=== PATIENT | male | born 1950 | race Caucasian/White ===

== ENCOUNTER 2024-10-08 12:53 | Outpatient (AMB) | payer MEDICARE, OTHER, SELFPAY ==
[2024-10-08 12:55] VITALS: BP 122/70; PULSE 57; O2SAT 99
--- NOTE | 2024-10-08 12:55 | MHC.OFFVIS ---
Vital Signs 10/08/24 12:55 Weight 289 lb 10.998 oz BP 122/70 Blood Pressure Location Lt brachial Position Sitting Pulse 57 Pulse Source Pulse Oximeter Pulse Oximetry (%) 99 Oxygen Delivery Method Room Air Intake Visit Reasons: RA/MR Recieved Intake Note: Patient presents today for follow up on RA today. Patient is requesting Leflunomide in 90 days' supply. He would also like to talk about the Methotrexate. Accompanied by: Spouse Allergies No Known Allergies Allergy (Verified 10/08/24 13:01) HPI HPI RA/MR Recieved: Details: Discontinued MTX 6 months ago. Feels well. No joint swelling or pain. Skin lesions on arms are healing. He was treated for fungus by Dermatology with antifungals. He is currently off of treatment and is just using a moisturizer. No infections. PFS Medical History (Updated 10/08/24 @ 13:36 by Wilbert Masters MD) Blindness of both eyes FH: cholecystectomy Surgical History (Updated 10/08/24 @ 13:11 by Suzanne Carroll CMA) Hx of cataract surgery History of right hip replacement Family History (Updated 10/08/24 @ 13:08 by Suzanne Carroll CMA) Father FH: pancreatic cancer Social History (Updated 10/08/24 @ 13:07 by Suzanne Carroll CMA) Alcohol intake: current Alcohol intake frequency: a few times a week Patient Tobacco Use Status: Never used Tobacco Review of Systems Const All systems reviewed & are unremarkable except as noted in HPI and below Physical Exam Vital Signs: Last Vital Signs Pulse 57 10/08/24 12:55 BP 122/70 10/08/24 12:55 Pulse Ox 99 10/08/24 12:55 Oxygen Delivery Method Room Air 10/08/24 12:55 Const Other: General: Comfortable CVS: RRR Respiratory: clear to auscultation bilaterally. Good respiratory effort Skin: Flat circular erythematous lesions present on left arm MSK: No synovitis present. No tenderness of any joints. Good range of motion of upper extremity and lower extremities. Assessment & Plan Assessment & Plan (1) Rheumatoid arthritis: Comment: history of rheumatoid arthritis seronegative on methotrexate since 10/07/2021 and leflunomide. He discontinued methotrexate 6 months ago due to feeling unwell. He has remained on monotherapy with leflunomide with maintenance of remission. Code(s): M06.9 - Rheumatoid arthritis, unspecified Category: Medical Qualifiers: Rheumatoid arthritis location: multiple sites Rheumatoid factor presence: without rheumatoid factor Qualified Code(s): M06.09 - Rheumatoid arthritis without rheumatoid factor, multiple sites Plan: Continue leflunomide 20 mg daily Labs for disease and drug monitoring order this visit. After lab results are back, we will send prescription of leflunomide 20 mg daily 90 day supply. Return to clinic in 3 months Immunizations: He is up-to-date with flu shot and COVID-19 booster. I recommend that he get Prevnar 13 and Pneumovax. (2) Other termite renewal inspector (current) drug therapy: Code(s): Z79.899 - Other chcf (current) drug therapy Category: Medical Plan: See above Orders: Orders Hepatitis B,C Profile Today M06.9 - Rheumatoid arthritis, unspecified, Z79.899 - Other chcf (current) drug therapy T Spot TB Today M06.9 - Rheumatoid arthritis, unspecified, Z79.899 - Other termite renewal inspector (current) drug therapy Complete Blood Count Auto Diff Today M06.9 - Rheumatoid arthritis, unspecified, Z79.899 - Other chcf (current) drug therapy Alanine Aminotransferase Today M06.9 - Rheumatoid arthritis, unspecified, Z79.899 - Other chcf (current) drug therapy Aspartate Amino Transferase Today M06.9 - Rheumatoid arthritis, unspecified, Z79.899 - Other chcf (current) drug therapy Creatinine Today M06.9 - Rheumatoid arthritis, unspecified, Z79.899 - Other termite renewal inspector (current) drug therapy Erythrocyte Sedimentation Rate Today M06.9 - Rheumatoid arthritis, unspecified, Z79.899 - Other termite renewal inspector (current) drug therapy C Reactive Protein Today M06.9 - Rheumatoid arthritis, unspecified, Z79.899 - Other termite renewal inspector (current) drug therapy Coding Level of Care Code Est Pt Level 4 (93077) Diagnoses Rheumatoid arthritis of multiple sites with negative rheumatoid factor M06.09 Rheumatoid arthritis location: multiple sites Rheumatoid factor presence: without rheumatoid factor Other termite renewal inspector (current) drug therapy Z79.899
== END 2024-10-08 13:35 | disposition home or self-care (01) ==
PROVIDERS: PCP Internal Medicine; Visit Provider Internal Medicine Rheumatology
DX: M06.09 Rheumatoid arthritis without rheumatoid factor, multiple sites (principal); Z79.899 Other long term (current) drug therapy
CPT/HCPCS: 99214

== ENCOUNTER → 2024-10-08 12:53 | Outpatient (BNVA) | payer MEDICARE, SELFPAY | PROVIDERS: PCP Internal Medicine; Visit Provider Internal Medicine Rheumatology | DX: M06.09 Rheumatoid arthritis without rheumatoid factor, multiple sites (principal); Z79.899 Other long term (current) drug therapy | CPT/HCPCS: 99212 ==

== ENCOUNTER 2024-10-12 12:56 | Outpatient (REF) | payer MEDICARE, OTHER, SELFPAY ==
[2024-10-12 13:15] LABS: MANUAL DIFF FLAG NO
[2024-10-12 14:10] LABS: Basophils Percent Auto 0.7 % (0-2); Eosinophils Absolute Auto 0.2 X10*3/uL (0.0-0.4); Eosinophils Percent Auto 3.3 % (0-4); Hematocrit 35.5 % (42.0-52.0); Hemoglobin 10.8 g/dl (14.0-18.0); Imm Gran Abs Auto 0.02 X10*3/uL (0.00-0.03); Imm Gran Pct Auto 0.4 % (0.0-0.4); Lymphocytes Absolute Auto 0.6 X10*3/uL (1.2-4.9); Lymphocytes Percent Auto 13.7 % (20-40); Mean Corpuscular HGB Conc 30.4 g/dl (31.0-36.0); Mean Corpuscular Hemoglobin 19.7 pg (27.0-33.0); Monocytes Absolute Auto 0.5 X10*3/uL (0.1-1.2); Monocytes Percent Auto 11.8 % (2-11); Neutrophils Absolute Auto 3.2 x10*3/uL (2.0-8.3); Neutrophils Percent Auto 70.1 % (45-73); Platelet Count 184 X10*3/uL (160-400); Red Blood Count 5.48 X10*6/uL (4.60-5.80); Red Cell Distribution Width 17.1 % (11.0-16.0); White Blood Count 4.5 X10*3/uL (4.8-10.8)
[2024-10-12 14:11] LABS: Mean Corpuscular Volume 64.8 fL (80.0-98.0)
[2024-10-12 14:48] LABS: Erythrocyte Sedimentation Rate 10 MM/HR (0-15)
[2024-10-12 15:01] LABS: Alanine Aminotransferase 20 U/L (0-40); Aspartate Amino Transferase 32 U/L (5-37); C Reactive Protein 0.12 mg/dL (< or = 0.50); Estimated Glomerular Filt Rate 56
[2024-10-13 08:14] LABS: HBc Num1 0.14 S/CO (0.00-0.79); Hepatitis B Core Antibody Nonreactive (Nonreactive); Hepatitis B Surface Antigen Negative (Negative); ~HepC Num1 0.13 S/CO (0.00-0.79); ~Hepatitis B Surface Antibody NONREACTIVE (Nonreactive); ~Hepatitis C Antibody Nonreactive (Nonreactive)
[2024-10-15 03:54] LABS: TS Negative Control Passed; TS Panel A 0; TS Panel B 0; TS Positive Control Passed; TSpotTB Negative (Negative)
== END 2024-10-12 12:57 | disposition home or self-care (01) ==
LOC: HO.LAB 12:56
PROVIDERS: PCP Internal Medicine; Visit Provider Internal Medicine Rheumatology
DX: M06.9 Rheumatoid arthritis, unspecified (principal); Z79.899 Other long term (current) drug therapy
CPT/HCPCS: 36415; 82565; 84450; 84460; 85025; 85652; 86140; 86481; 86704; 86706; 86803; 87340

== ENCOUNTER 2025-01-07 13:17 | Outpatient (REF) | payer MEDICARE, OTHER, SELFPAY ==
[2025-01-07 17:58] LABS: MANUAL DIFF FLAG NO
[2025-01-07 18:22] LABS: Alanine Aminotransferase 18 U/L (0-40); Aspartate Amino Transferase 27 U/L (5-37); C Reactive Protein < 0.10 mg/dL (< or = 0.50); Estimated Glomerular Filt Rate > 60
[2025-01-07 18:26] LABS: Basophils Percent Auto 0.4 % (0-2); Eosinophils Absolute Auto 0.1 X10*3/uL (0.0-0.4); Eosinophils Percent Auto 2.7 % (0-4); Hematocrit 38.2 % (42.0-52.0); Hemoglobin 11.5 g/dl (14.0-18.0); Imm Gran Abs Auto 0.02 X10*3/uL (0.00-0.03); Imm Gran Pct Auto 0.4 % (0.0-0.4); Lymphocytes Absolute Auto 0.7 X10*3/uL (1.2-4.9); Lymphocytes Percent Auto 14.5 % (20-40); Mean Corpuscular HGB Conc 30.1 g/dl (31.0-36.0); Mean Corpuscular Hemoglobin 19.5 pg (27.0-33.0); Monocytes Absolute Auto 0.5 X10*3/uL (0.1-1.2); Neutrophils Absolute Auto 3.1 x10*3/uL (2.0-8.3); Platelet Count 183 X10*3/uL (160-400); Red Blood Count 5.89 X10*6/uL (4.60-5.80); Red Cell Distribution Width 18.1 % (11.0-16.0); White Blood Count 4.5 X10*3/uL (4.8-10.8)
[2025-01-07 18:27] LABS: Mean Corpuscular Volume 64.9 fL (80.0-98.0)
[2025-01-07 19:03] LABS: Erythrocyte Sedimentation Rate 6 MM/HR (0-15)
== END 2025-01-07 13:18 | disposition home or self-care (01) ==
LOC: HO.HKASLDS 13:17
PROVIDERS: Visit Provider Internal Medicine Rheumatology
DX: M06.09 Rheumatoid arthritis without rheumatoid factor, multiple sites (principal); Z79.899 Other long term (current) drug therapy; Z79.60 Long term (current) use of unspecified immunomodulators and immunosuppressants
CPT/HCPCS: 36415; 82565; 84450; 84460; 85025; 85652; 86140; 99212

== ENCOUNTER 2025-01-07 13:17 | Outpatient (AMB) | payer MEDICARE, OTHER, SELFPAY ==
--- NOTE | 2025-01-07 13:19 | A.OFFVIS_ITS ---
Vital Signs 01/07/25 13:23 Height 5 ft 11 in Weight 281 lb BMI 39.2 Blood Pressure Location Lt brachial Position Sitting Pulse 65 Pulse Source Pulse Oximeter Pulse Oximetry (%) 97 Oxygen Delivery Method Room Air Intake Visit Reasons: Follow Up 3mo Intake Note: Patient presents today for follow up on RA today. Accompanied by: Spouse Allergies No Known Allergies Allergy (Verified 01/07/25 13:20) HPI HPI Follow Up 3mo: Details: He feels well. No joint stiffness. No joint pain or swelling. No recent infection. PFSH Medical History Blindness of both eyes FH: cholecystectomy Surgical History Hx of cataract surgery History of right hip replacement Family History Father FH: pancreatic cancer Social History Alcohol intake: current Alcohol intake frequency: a few times a week Patient Tobacco Use Status: Never used Tobacco Review of Systems Const All systems reviewed & are unremarkable except as noted in HPI and below Physical Exam Vital Signs: Last Vital Signs Pulse 65 01/07/25 13:23 Pulse Ox 97 01/07/25 13:23 Oxygen Delivery Method Room Air 01/07/25 13:23 BMI result Body Mass Index 39.2 Const Other: General: Comfortable CVS: RRR Respiratory: clear to auscultation bilaterally. Good respiratory effort Skin: Flat circular erythematous lesions present on left arm MSK: No synovitis present. No tenderness of any joints. Good range of motion of upper extremity and lower extremities. Assessment & Plan Assessment & Plan (1) Rheumatoid arthritis: Comment: He has remained in remission on monotherapy with leflunomide. History of rheumatoid arthritis seronegative on methotrexate since 10/07/2021- 2023 discontinued due to feeling unwell and leflunomide 09/2021-present. Code(s): M06.9 - Rheumatoid arthritis, unspecified Category: Medical Qualifiers: Rheumatoid arthritis location: multiple sites Rheumatoid factor presence: without rheumatoid factor Qualified Code(s): M06.09 - Rheumatoid arthritis without rheumatoid factor, multiple sites Plan: Continue leflunomide 20 mg daily Labs for disease and drug monitoring order this visit Return to clinic in 3 months (2) Other predatory animal exterminator (current) drug therapy: Code(s): Z79.899 - Other predatory animal exterminator (current) drug therapy Category: Medical Plan: See above Orders: Orders Creatinine Today Z79.60 - FPC (current) use of unspecified immunomodulators and immunosuppressants C Reactive Protein Today Z79.899 - Other predatory animal exterminator (current) drug therapy Complete Blood Count Auto Diff Today Z79.60 - FPC (current) use of unspecified immunomodulators and immunosuppressants Aspartate Amino Transferase Today Z79.60 - termite treater helper (current) use of unspecified immunomodulators and immunosuppressants Alanine Aminotransferase Today Z79.60 - termite treater helper (current) use of unspecified immunomodulators and immunosuppressants Erythrocyte Sedimentation Rate Today Z79.899 - Other longterm (current) drug therapy Medications: Refilled leflunomide Take 1 tablet daily 20 mg PO DAILY 90 tabs 0RF Coding Level of Care Code Est Pt Level 4 (80337) Complex EM visit Add On G2211 Diagnoses Rheumatoid arthritis of multiple sites with negative rheumatoid factor M06.09 Rheumatoid arthritis location: multiple sites Rheumatoid factor presence: without rheumatoid factor Other predatory animal exterminator (current) drug therapy Z79.899
[2025-01-07 13:23] VITALS: PULSE 65; O2SAT 97; BMI 39.2
== END 2025-01-07 13:49 | disposition home or self-care (01) ==
PROVIDERS: PCP Internal Medicine; Visit Provider Internal Medicine Rheumatology
DX: M06.09 Rheumatoid arthritis without rheumatoid factor, multiple sites (principal); Z79.899 Other long term (current) drug therapy
CPT/HCPCS: 99214; G2211

== ENCOUNTER 2025-04-07 13:26 | Outpatient (REF) | payer MEDICARE, OTHER, SELFPAY ==
[2025-04-07 18:51] LABS: Alanine Aminotransferase 14 U/L (0-40); Aspartate Amino Transferase 40 U/L (5-37); C Reactive Protein < 0.10 mg/dL (< or = 0.50); Estimated Glomerular Filt Rate > 60; Iron 102 mcg/dL (45-160); Percent Iron Saturation 38 % (15-50); Total Iron Binding Capacity 267 mcg/dL (228-428); Unsaturated Iron Binding 165 ug/dL
[2025-04-07 19:00] LABS: Ferritin 684 ng/mL (20-250)
[2025-04-08 17:14] LABS: Transferrin 243 mg/dL (188-341)
== END 2025-04-07 13:27 | disposition home or self-care (01) ==
LOC: HO.HKASLDS 13:26
PROVIDERS: PCP Internal Medicine; Visit Provider Internal Medicine Rheumatology
DX: M06.09 Rheumatoid arthritis without rheumatoid factor, multiple sites (principal); D50.9 Iron deficiency anemia, unspecified; Z79.60 Long term (current) use of unspecified immunomodulators and immunosuppressants; Z79.899 Other long term (current) drug therapy
CPT/HCPCS: 36415; 82565; 82728; 83540; 84450; 84460; 84466; 86140; 99212

== ENCOUNTER 2025-04-07 13:26 | Outpatient (AMB) | payer MEDICARE, OTHER, SELFPAY ==
--- NOTE | 2025-04-07 13:29 | MHC.OFFVIS ---
Vital Signs 04/07/25 13:35 Height 5 ft 11 in Weight 285 lb 7.978 oz BMI 39.8 BP 130/72 Blood Pressure Location Lt brachial Position Sitting Pulse 81 Pulse Source Pulse Oximeter Pulse Oximetry (%) 99 Oxygen Delivery Method Room Air Intake Visit Reasons: 3 Months Intake Note: Patient presents today for follow up on RA today. Patient requesting refill of Leflunomide today. Allergies No Known Allergies Allergy (Verified 04/07/25 13:36) PFSH Medical History Blindness of both eyes FH: cholecystectomy Surgical History Hx of cataract surgery History of right hip replacement Family History Father FH: pancreatic cancer Social History Alcohol intake: current Alcohol intake frequency: a few times a week Patient Tobacco Use Status: Never used Tobacco Physical Exam Vital Signs: Last Vital Signs Pulse 81 04/07/25 13:35 BP 130/72 04/07/25 13:35 Pulse Ox 99 04/07/25 13:35 Oxygen Delivery Method Room Air 04/07/25 13:35 BMI result Body Mass Index 39.8 Const Other: General: Comfortable CVS: RRR Respiratory: clear to auscultation bilaterally. Good respiratory effort Skin: Flat circular erythematous lesions present on left arm MSK: No synovitis present. No tenderness of any joints. Good range of motion of upper extremity and lower extremities. Assessment & Plan Assessment & Plan (1) Rheumatoid arthritis: Comment: He has remained in remission on monotherapy with leflunomide. He has had mild leukopenia since 07/2024. CT abdomen/pelvis 07/2023 reveals normal spleen ruling out Felty's syndrome as cause for leukopenia in a patient with rheumatoid arthritis. There is a possibility of bone marrow suppression from leflunomide contributing to leukopenia. He has thalassemia minor contributing to microcytic anemia. He has mild fatigue. Rheumatology History of rheumatoid arthritis seronegative on methotrexate since 10/07/2021-2024 discontinued due to feeling unwell. Leflunomide 09/2021-present. Code(s): M06.9 - Rheumatoid arthritis, unspecified Category: Medical Qualifiers: Rheumatoid arthritis location: multiple sites Rheumatoid factor presence: without rheumatoid factor Qualified Code(s): M06.09 - Rheumatoid arthritis without rheumatoid factor, multiple sites Plan: Continue leflunomide 20 mg daily Labs for disease and drug monitoring order this visit. Iron studies ordered Return to clinic in 3 months (2) Other care home (current) drug therapy: Code(s): Z79.899 - Other care home (current) drug therapy Category: Medical Plan: See above (3) Microcytic anemia: Comment: Due to thalassemia minor. Code(s): D50.9 - Iron deficiency anemia, unspecified Category: Medical Plan: I will rule out iron deficiency anemia contributing to mild fatigue with Iron studies Orders: Orders Complete Blood Count Auto Diff Today Z79.60 - intermediate (current) use of unspecified immunomodulators and immunosuppressants Creatinine Today Z79.60 - adjunct faculty for medical terminology (current) use of unspecified immunomodulators and immunosuppressants C Reactive Protein Today Z79.899 - Other intermediate frame tender (current) drug therapy IRON PROFILE Today D50.9 - Iron deficiency anemia, unspecified Transferrin Today D50.9 - Iron deficiency anemia, unspecified Alanine Aminotransferase Today Z79.60 - intermediate (current) use of unspecified immunomodulators and immunosuppressants Aspartate Amino Transferase Today Z79.60 - adjunct faculty for medical terminology (current) use of unspecified immunomodulators and immunosuppressants Erythrocyte Sedimentation Rate Today Z79.899 - Other intermediate frame tender (current) drug therapy Ferritin Today D50.9 - Iron deficiency anemia, unspecified Medications: Refilled leflunomide Take 1 tablet daily 20 mg PO DAILY 90 tabs 0RF Coding Level of Care Code Est Pt Level 4 (90966) Complex EM visit Add On G2211 Diagnoses Rheumatoid arthritis of multiple sites with negative rheumatoid factor M06.09 Rheumatoid arthritis location: multiple sites Rheumatoid factor presence: without rheumatoid factor Other intermediate frame tender (current) drug therapy Z79.899 Microcytic anemia D50.9
[2025-04-07 13:35] VITALS: BP 130/72; PULSE 81; O2SAT 99; BMI 39.8
== END 2025-04-07 14:03 | disposition home or self-care (01) ==
LOC: HO.RHES 13:27
PROVIDERS: PCP Internal Medicine; Visit Provider Internal Medicine Rheumatology
DX: M06.09 Rheumatoid arthritis without rheumatoid factor, multiple sites (principal); Z79.899 Other long term (current) drug therapy; D50.9 Iron deficiency anemia, unspecified
CPT/HCPCS: 99214; G2211

== ENCOUNTER 2025-04-20 13:22 | Outpatient (REF) | payer MEDICARE, OTHER, SELFPAY ==
[2025-04-20 18:52] LABS: Aspartate Amino Transferase 29 U/L (5-37)
[2025-04-20 18:55] LABS: Basophils Percent Auto 0.4 % (0-2); Eosinophils Absolute Auto 0.2 X10*3/uL (0.0-0.4); Eosinophils Percent Auto 2.9 % (0-4); Hematocrit 35.4 % (42.0-52.0); Hemoglobin 10.4 g/dl (14.0-18.0); Imm Gran Abs Auto 0.02 X10*3/uL (0.00-0.03); Imm Gran Pct Auto 0.4 % (0.0-0.4); Lymphocytes Absolute Auto 0.5 X10*3/uL (1.2-4.9); Lymphocytes Percent Auto 9.2 % (20-40); MANUAL DIFF FLAG SCAN; Mean Corpuscular HGB Conc 29.4 g/dl (31.0-36.0); Mean Corpuscular Hemoglobin 19.2 pg (27.0-33.0); Mean Corpuscular Volume 65.2 fL (80.0-98.0); Monocytes Absolute Auto 0.9 X10*3/uL (0.1-1.2); Monocytes Percent Auto 16.6 % (2-11); Neutrophils Absolute Auto 3.9 x10*3/uL (2.0-8.3); Neutrophils Percent Auto 70.5 % (45-73); Platelet Count 221 X10*3/uL (160-400); Red Blood Count 5.43 X10*6/uL (4.60-5.80); Red Cell Distribution Width 18.2 % (11.0-16.0); SCAN SMEAR FLAG 1; White Blood Count 5.6 X10*3/uL (4.8-10.8)
[2025-04-20 18:58] LABS: PLT ABN DIST 1
[2025-04-20 19:36] LABS: Erythrocyte Sedimentation Rate 13 MM/HR (0-15)
[2025-04-20 20:20] LABS: SLIDE REVIEW VERIFIED
== END 2025-04-20 13:23 | disposition home or self-care (01) ==
LOC: HO.HKASLDS 13:22
PROVIDERS: Visit Provider Internal Medicine Rheumatology
DX: R74.01 Elevation of levels of liver transaminase levels (principal); Z79.60 Long term (current) use of unspecified immunomodulators and immunosuppressants; Z79.899 Other long term (current) drug therapy
CPT/HCPCS: 36415; 84450; 85025; 85652

== ENCOUNTER 2025-07-20 14:07 | Outpatient (AMB) | payer MEDICARE, OTHER, SELFPAY ==
--- NOTE | 2025-07-20 14:09 | MHC.OFFVIS ---
Vital Signs 07/20/25 14:10 Height 5 ft 11 in BP 130/80 Blood Pressure Location Rt brachial Position Sitting Pulse 65 Pulse Source Pulse Oximeter Pulse Oximetry (%) 95 Oxygen Delivery Method Room Air Intake Visit Reasons: 3 months Intake Note: Patient presents today for follow up on RA today. Accompanied by: Spouse Allergies No Known Allergies Allergy (Verified 07/20/25 14:10) HPI HPI 3 months: Details: Denies any joint pain. Denies any recent infections. No morning stiffness. Occasionally right 2nd finger we will be delayed in flexion. No triggering. PFSH Medical History Blindness of both eyes FH: cholecystectomy Surgical History Hx of cataract surgery History of right hip replacement Family History Father FH: pancreatic cancer Social History Alcohol intake: current Alcohol intake frequency: a few times a week Patient Tobacco Use Status: Never used Tobacco Physical Exam Vital Signs: Last Vital Signs Pulse 65 07/20/25 14:10 BP 130/80 07/20/25 14:10 Pulse Ox 95 07/20/25 14:10 Oxygen Delivery Method Room Air 07/20/25 14:10 Const Other: General: Comfortable CVS: RRR Respiratory: clear to auscultation bilaterally. Good respiratory effort Skin: Flat circular erythematous lesions present on left arm MSK: No synovitis present. No tenderness of any joints. Good range of motion of upper extremity and lower extremities. No triggering observed. Assessment & Plan Assessment & Plan (1) Rheumatoid arthritis: Comment: He has remained in remission on monotherapy with leflunomide. He has had mild leukopenia since 07/2024, which resolved on recent testing 04/2025. CT abdomen/pelvis 07/2023 reveals normal spleen ruling out Felty's syndrome as cause for leukopenia in a patient with rheumatoid arthritis. Consider drug-induced leukopenia if it reoccurs. Rheumatology History of rheumatoid arthritis seronegative on methotrexate since 10/07/2021-2024 discontinued due to feeling unwell. Leflunomide 09/2021-present. He has thalassemia minor contributing to chronic microcytic anemia. Code(s): M06.9 - Rheumatoid arthritis, unspecified Category: Medical Qualifiers: Rheumatoid arthritis location: multiple sites Rheumatoid factor presence: without rheumatoid factor Qualified Code(s): M06.09 - Rheumatoid arthritis without rheumatoid factor, multiple sites Plan: Continue leflunomide 20 mg daily Labs for disease and drug monitoring order this visit Return to clinic in 3 months (2) Trigger finger, right index finger: Comment: Suspected based on history. Discussed conservative management. Code(s): M65.321 - Trigger finger, right index finger Category: Medical Plan: OT ordered with splinting. Requisition given to patient as he prefers do it at [facility] local to his home Return to clinic in 3 months (3) Other nursing home (current) drug therapy: Code(s): Z79.899 - Other long term care pharmacist (current) drug therapy Category: Medical Plan: See above (4) Microcytic anemia: Comment: Due to thalassemia minor. Code(s): D50.9 - Iron deficiency anemia, unspecified Category: Medical Plan: Monitor Orders: Orders Complete Blood Count Auto Diff Today Z79.899 - Other nursing home (current) drug therapy Aspartate Amino Transferase Today Z79.899 - Other long term care pharmacist (current) drug therapy C Reactive Protein Today Z79.899 - Other long term care pharmacist (current) drug therapy Alanine Aminotransferase Today Z79.899 - Other nursing home (current) drug therapy Creatinine Today Z79.899 - Other long term care pharmacist (current) drug therapy Erythrocyte Sedimentation Rate Today Z79.899 - Other nursing home (current) drug therapy OT Evaluation and Treatment Today M65.321 - Trigger finger, right index finger Medications: Refilled leflunomide Take 1 tablet daily 20 mg PO DAILY 90 tabs 0RF Coding Level of Care Code Est Pt Level 4 (91804) Complex EM visit Add On G2211 Diagnoses Rheumatoid arthritis of multiple sites with negative rheumatoid factor M06.09 Rheumatoid arthritis location: multiple sites Rheumatoid factor presence: without rheumatoid factor Trigger finger, right index finger M65.321 Other long term care pharmacist (current) drug therapy Z79.899 Microcytic anemia D50.9
[2025-07-20 14:10] VITALS: BP 130/80; PULSE 65; O2SAT 95
--- OUTSIDE RECORDS SUMMARY | 2025-07-20 15:20 | XMS_ITS | Encounter Summary ---
Author Organization [facility] Address [address] [place] [id number] Phone Care Team Providers Care Tool Crib Attendant Name Role Phone Rubio Grubbs MD Primary Care Provider [phone] Carlos Christian MD Unavailable [phone] Rubio Grubbs MD Unavailable Wilbert Masters MD Unavailable Carlos Caputo MD Unavailable Reason for Visit * Reason Onset Date Comments Palpitations 05/14/2023 Encounter Details Date Type Department Care Team (Late st Contact Info) Description 05/14/2023 Nurse Triage [address] [address] Rubio Grubbs MD [address] [facility] [facility] [place] [address] [email or web address] Palpitations Social History Tobacco Use Types Packs/Day Years Used Date Smoking Tobacco: Never Smokeless Tobacco: Never Alcohol Use Standard Drinks/Week Comments Yes 0 (1 standard drink = 0.6 oz pur e alcohol) weekends Education Answer Date Recorded Are you interested in more education? Not on gregg e 03/24/2023 Are you concerned about learning? Not on file 03/24/2023 No 03/24/2023 No 03/24/2023 Digital Access Answer Date Recorded No 04/14/2023 No 04/14/2023 Reliable internet access at home? Not on file 04/14/2023 Device with a working camera? Not on file Sex and Gender Information Value Date Recorded Sex Assigned at Not on file Legal Sex Male 6:27 PM EST Gender Identity Not on file Sexual Orientation Not on file documented as of this encounter Progress Notes * Felicia Asif LPN - 05/16/2023 11:38 AM EDT Cardiology: Patient has an order in for a holter monitor. PCP asked me to call up to see if at all possible to put one on him while he is here this morning? * Malinda Bailey RN - 05/14/2023 2:08 PM EDT Spoke to patient and his . He was seen in the office on 04/03 for an episode similar to this. Another episode occurred this past Saturday; fast heart rate, throat howard, almost 20 minutes long. He feels exhausted afterwards. No chest pain, he does not feel like his heart skips beats. When this occurred on Saturday he was laying down reading a book. No SOB reported. When he exercises he does notfeel any of these symptoms. Advised to go to ED if he develops chest pain or the fast heart rate does not stop. Nurse Triage Encounter Note Reason for Triage Dez Weaver contacted office for Palpitations Call Disposition See Within 2 Weeks In Office Patient/caregiver understands and will follow disposition: Yes Patient/caregiver understands and will follow care advice: Yes, Plans To Follow Advice Disposition Comments: Protocols used: Heart Rate And Heartbeat [id number] Initial Symptom Screening and Assessment IA Symptom Onset Sudden onset Symptom Pattern Intermittent (comes and goes) Breathing or Chest Symptoms (Resp/Cardiac) Cardiac symptoms Rapid heart rate; Other (comment) Other breathing or chest symptoms? throat burning Care Advice Given Care Advice Patient/Caregiver understands and will follow care advice?: Yes, plans to follow advice SEE IN OFFICE WITHIN 2 WEEKS: * You need to be examined. * Let me give you an appointment. CALL BACK IF: * Chest pain, lightheadedness, or difficulty breathing occurs * Heart beating more than 140 beats / minute * More than 3 extra or skipped beats / minute * You become worse Patient will call back with additional questions or if symptoms change or worsen Malinda Bailey RN Reason for Disposition and Assessment Reason for Disposition Palpitations are a chronic symptom (recurrent or ongoing AND present > 4 weeks) Protocols used: HEART RATE AND HEARTBEAT [id number] * Lana Guerrero - 05/14/2023 2:01 PM EDT Nyasia called and left a message requesting a call back regarding patient stating he is having a hard time with his palpitations. Please contact and advise. documented in this encounter Plan of Treatment Upcoming Encounters Date Type Department Care Team (Late st Contact Info) Description 11/23/2025 1:00 PM EST Office Visit [address] [address] Rubio Grubbs MD [address] [place] [address], [address] [place] [address] documented as of this encounter Visit Diagnoses Not on filedocumented in this encounter Additional Health Concerns Infection Onset Date Last Indicated Resolved Time CDiff-Risk 09/01/2024 09/02/2024 09/02/2024 7:18 PM EDT Assessment Noted Time PHQ-2 Depression Total Score: 0 04/06/20 22 1:06 PM EDT documented as of this encounter Care Teams Tool Crib Attendant Relationship Specialty Start Date End Date Rubio Grubbs MD [address] [place] [address], [address] [place] [address] PCP - General Family Medicine 11/20/18 Carlos Christian MD NPI: [id number] [place] [id number] Unknown Provider Specialty 01/31/21 Rubio Grubbs MD [address] [place] [address], [address] [place] [address] Insurance Assigned Provider 02/22/24 11/23/24 Wilbert Masters MD [address] [place] [address], [address] [place] [address] Internal Medicine 08/02/21 Carlos Caputo MD [facility] Antonio Stephens [facility] [address] [place] [address] Orthopedic Surgery 04/06/22 documented as of this encounter Additional Source Comments The information contained in this document represents components of the legal health record. It is not the complete legal health record.[facility]
--- OUTSIDE RECORDS SUMMARY | 2025-07-20 15:20 | XMS_ITS | Clinical Summary ---
Author Organization [facility] Address [address] [address] Phone Care Team Providers Care [employer] Name Role Phone Rubio Grubbs MD Primary Care Provider [phone] Carlos Christian MD Unavailable [phone] Wilbert Masters MD Unavailable Carlos Caputo MD Unavailable Allergies No known active allergies Medications indomethacin (INDOCIN) 50 MG capsule Take 1 capsule (50 mg total) by mouth 2 (two) times a day as needed. 60 capsule 2 Active leflunomide (ARAVA) 20 MG tablet 4 Active sertraline (ZOLOFT) 100 MG tablet take 1 tablet by mouth every day 90 tablet 3 4 Active losartan (COZAAR) 50 MG tabletIndications :Essential hypertension TAKE 1 TABLET BY MOUTH EVERY DAY 90 tablet 3 4 Active metoprolol succinate (TOPROL-XL) 100 MG 24 hr tabletIndications :Essential hypertension TAKE 1.5 TABLETS (150MG TOTAL) BY MOUTH DAILY 135 tablet 3 4 Active allopurinol (ZYLOPRIM) 300 MG tablet TAKE 1 TABLET BY MOUTH EVERY DAY 90 tablet 3 5 Active omeprazole (PRILOSEC) 20 MG capsuleIndication s:Gastroesophagea l reflux disease TAKE 1 CAPSULE BY MOUTH EVERY DAY NEEDED 90 capsule 1 5 Active Active Problems Problem Noted Date Diagnosed Date Chronic diarrhea 09/01/2024 Assessment & Plan (05/13/2025 5:43 PM EDT): Doing better with only intermittent symptoms. May be a component of food intolerance or irritable bowel. No other intervention needed. Assessment & Plan (11/19/2024 2:09 PM EST): Doing well using Imodium occasionally. Assessment & Plan (09/01/2024 12:09 PM EDT): Symptoms started this spring after taking antibiotic earlier in the spring. It is possible he may have C. difficile. If stool studies are unremarkable and labs showed no significant abnormality, likely will need GI consult. He may have radiation proctitis although he had his radiation years ago and did not have a significant problem until just recently. Renal stone 07/23/2023 Overview (07/23/2023): 06/2023 mild hydronephrosis Gastroesophageal reflux disease without esophagi tis 07/20/2023 Assessment & Plan (07/20/2023 8:23 AM EDT): Advised continued use of omeprazole, TUMS as needed. If symptoms worsen or he develops chest pressure or pain or shortness of breath go to ER for further evaluation. Pt and verbalized understanding agreeable to plan. Paroxysmal supraventricular tachycardia 05/16/20 Overview (11/04/2023): Cardiology offered ablation in 2022, patient deferred Assessment & Plan (11/19/2024 2:08 PM EST): Doing well, may be able to decrease dose of metoprolol if needed. Assessment & Plan (11/04/2023 2:34 PM EST): Having infrequent and self-limited episodes of PSVT. He understands the risk of a more prolonged episode. If he has an episode that causes him more symptoms or longer duration he will go to the emergency department for evaluation. At this point he would like to continue with his current medication and hold off on any invasive procedures such an ablation. Assessment & Plan (05/16/2023 11:41 AM EDT): Patient is having more episodes of tachycardia. With finding on recent EKG of mild QT prolongation, ventricular tach arrhythmia is possible, but more likely he is having either atrial fibrillation or some other PSVT which unfortunately is breaking through despite taking metoprolol. I will check a Holter monitor and have him reevaluated by cardiology. If he has symptoms that cause more symptoms or last longer than about 30 minutes, he should go to the emergency department via EMS. Prolonged QT interval 04/03/2023 Assessment & Plan (04/03/2023 4:55 PM EDT): Likely related to low resting heart rate. Await results of labs and Holter monitor Obesity, morbid 04/06/2022 Assessment & Plan (11/19/2024 2:08 PM EST): Dietary counseling was given Assessment & Plan (04/06/2022 1:35 PM EDT): Dietary counseling was given. Hopefully will be able to be significantly more active after his hip replacement next month Seronegative rheumatoid arthritis 08/02/2021 Assessment & Plan (05/13/2025 5:42 PM EDT): Well with leflunomide, continue the same and follow-up as planned with rheumatology Assessment & Plan (11/19/2024 2:08 PM EST): Well-controlled, continue current medication and follow-up as planned with rheumatology. Assessment & Plan (05/07/2024 12:27 PM EDT): Diarrhea may be due to methotrexate. He will stay off this medication and then contact his pcu rn when he returns from his trip to [place]. For the diarrhea he can use Imodium or Pepto-Bismol as needed. Assessment & Plan (11/04/2023 2:34 PM EST): Well-controlled, continue current medication. Assessment & Plan (04/03/2023 4:52 PM EDT): Doing very well, continue current medication. Question of methotrexate causing anemia and he will recheck his hemoglobin with his pcu rn next month. If the anemia has not improved, he should let me know so we can see you if further evaluation is needed. Assessment & Plan (04/06/2022 1:35 PM EDT): Well-controlled with current medication. Follow-up as planned with rheumatology Assessment & Plan (08/02/2021 1:04 PM EDT): Etiology not clear, though suspect this is either a mild inflammatory form of osteoarthritis or an autoimmune process. I do not see any symptoms of any other systemic disease. He is currently undergoing evaluation by rheumatology and he just started 2 days ago on treatment with prednisone. I am hopeful this will help to resolve his joint symptoms as well as his skin changes. Side effects of prednisone including hyperglycemia and increased appetite were reviewed. Follow-up as scheduled with rheumatology. History of prostate cancer 01/31/2021 Overview (01/31/2021): Prostatectomy 2002, recurrence in treated with radiation in 2006, Dr. Doyle. Urologist Dr. Christian Assessment & Plan (04/06/2022 1:34 PM EDT): Clinically is doing well. PSA has been very low and stable. We will recheck this sometime in the next 6 to 12 months. Assessment & Plan (01/31/2021 12:01 PM EDT): Clinically is doing well. His PSA was slightly elevated last year we will recheck it this year. Beta thalassemia minor 01/31/2021 Obstructive sleep apnea on CPAP 01/31/2021 Assessment & Plan (05/13/2025 5:42 PM EDT): Doing well with CPAP Assessment & Plan (11/19/2024 2:08 PM EST): Doing well with CPAP. Assessment & Plan (11/04/2023 2:34 PM EST): Doing well with CPAP, continue the same. Assessment & Plan (04/03/2023 4:51 PM EDT): Doing well with CPAP. Assessment & Plan (04/06/2022 1:34 PM EDT): Doing well, continue CPAP Assessment & Plan (01/31/2021 12:01 PM EDT): Doing well with CPAP, continue the same. Chronic idiopathic gout of foot 01/31/2021 Assessment & Plan (05/13/2025 5:42 PM EDT): Asymptomatic, continue allopurinol Assessment & Plan (11/19/2024 2:08 PM EST): Well-controlled, continue current medication Assessment & Plan (05/07/2024 12:28 PM EDT): Doing well with allopurinol with no flares. Continue the same. Primary osteoarthritis of left hip 12/25/2019 Assessment & Plan (04/06/2022 1:35 PM EDT): He is planning to have a total hip replacement next month. He has had a preop evaluation already done. I see no contraindication to proceed with the surgery if his labs and EKG showed no significant abnormality. Assessment & Plan (01/31/2021 12:01 PM EDT): Much better with meloxicam. Continue the same. Assessment & Plan (08/03/2020 11:05 AM EDT): Well-controlled, continue meloxicam. Assessment & Plan (12/25/2019 2:00 PM EST): Doing better with meloxicam, I told him he can use it as needed. Side effects benefits and risk reviewed. If he develops any stomach upset he will let me know. Essential hypertension 06/22/2019 Assessment & Plan (05/13/2025 5:42 PM EDT): Blood pressure is well-controlled, continue current medication Assessment & Plan (11/19/2024 2:08 PM EST): Well-controlled, potassium is running a bit high. If potassium is still high, we will add hydrochlorothiazide 12.5 mg and decrease metoprolol dose to 100 mg daily. Assessment & Plan (05/07/2024 12:27 PM EDT): Blood pressure is well-controlled, continue current medication Assessment & Plan (11/04/2023 2:33 PM EST): Well-controlled, continue current medication Assessment & Plan (04/03/2023 4:50 PM EDT): Blood pressure is well controlled, continue current medication Assessment & Plan (04/06/2022 1:34 PM EDT): Well-controlled, continue current medication. After reviewing his cardiovascular risk, I like him to discontinue aspirin as the risks outweigh the benefits. Assessment & Plan (08/02/2021 1:03 PM EDT): Well-controlled, continue current medication Assessment & Plan (01/31/2021 12:01 PM EDT): Hypertension is well controlled, continue current medication. Assessment & Plan (08/03/2020 11:05 AM EDT): Well-controlled, continue current medication. Assessment & Plan (12/25/2019 1:58 PM EST): Blood pressures well controlled, continue current medication. Assessment & Plan (06/22/2019 9:31 PM EDT): Blood pressures well controlled, continue current medication. If he continues to lose weight as blood pressure goes down more he may need a reduction in his dose. Develops lightheadedness before his next appointment I asked him to give me a call. Recurrent major depressive disorder, in full rem ission 06/22/2019 Assessment & Plan (05/13/2025 5:43 PM EDT): Well-controlled with current medication, continue the same. Assessment & Plan (11/19/2024 2:09 PM EST): Well-controlled, continue current medication Assessment & Plan (05/07/2024 12:27 PM EDT): Well-controlled, continue current medication Assessment & Plan (11/04/2023 2:34 PM EST): Symptoms worsened with decreased dose of sertraline to 100 mg. He is doing well again at 150 mg, continue the same indefinitely. Assessment & Plan (04/03/2023 4:52 PM EDT): He is doing very well, continue current medication Assessment & Plan (04/06/2022 1:35 PM EDT): He is doing very well, continue current medication Assessment & Plan (08/02/2021 1:04 PM EDT): Mood is doing very well. Continue current medication. Assessment & Plan (01/31/2021 12:02 PM EDT): Depression is well controlled, continue current medication. Assessment & Plan (08/03/2020 11:05 AM EDT): Well-controlled, continue current medication. Assessment & Plan (12/25/2019 2:00 PM EST): Well-controlled with current medication. Assessment & Plan (06/22/2019 9:32 PM EDT): Depression is well controlled, continue current medication. Retinitis pigmentosa 06/22/2019 Resolved Problems Problem Noted Date Diagnosed Date Resolved Date Folliculitis 05/07/2024 11/19/2024 Overview (09/01/2024): Fungal culture and we can dermatology positive Assessment & Plan (09/01/2024 12:09 PM EDT): Gradually improving with terbinafine. Follow-up as planned with [facility] Assessment & Plan (05/07/2024 12:28 PM EDT): Significantly improved with doxycycline. Should gradually resolve after completion of antibiotic course. Flank pain 07/20/2023 11/19/2024 Assessment & Plan (08/07/2023 1:10 PM EDT): Pt had one episode of recurrence but has been improving since. I printed order for US to bring to [facility] [place]. Pt and will call with any worsening pain or recurrent symptoms. Otherwise will reassess once ultrasound results available. Pt and verbalized understanding, agreeable to plan. Pt plans to get COVID and flu vaccines at pharmacy in next few weeks. Assessment & Plan (07/20/2023 8:20 AM EDT): Question kidney stone vs infection. Urine dip in office with + blood. Will send UA. CT ordered for further evaluation. Pt advised to continue hydrating well. Use tylenol and motrin as needed. Aware of red flag symptoms that should prompt urgent reevaluation. Advised ER evaluation for worsened pain, inability to urinate, fevers. Pt verbalized understanding, agreeable to plan. Palpitations 04/03/2023 11/04/2023 Assessment & Plan (04/03/2023 4:51 PM EDT): He is having protracted paroxysms of a palpitation which are associated with symptoms that could be caused by low blood pressure or myocardial ischemia. If he has a recurrence of the symptoms asked him to go to the emergency department for evaluation, or if I am in the office I may have him come in to do an EKG during the paroxysms. I will check some labs and if there is no significant abnormality also check a 48-hour Holter monitor. Hyperkalemia 02/05/2021 04/03/2023 History of gout 01/31/2021 01/31/2021 Acute pain of left shoulder 01/31/2021 04/06/2022 Assessment & Plan (01/31/2021 12:02 PM EDT): He may have osteoarthritis. I will check a x-ray. Asked him to call his pcu rn and see if he has any other suggestions. It sounds like he may have had an injection of the subacromial space, but if he has osteoarthritis, he may benefit from a injection of the joint space. Left upper quadrant pain 09/28/2020 Assessment & Plan (01/31/2021 12:03 PM EDT): Resolved with omeprazole. I had like him to slowly try to wean this down and see if he can come off it. The pain may be due to meloxicam and if the pain recurs off the proton pump inhibitor, I recommend he continue with it. Assessment & Plan (09/28/2020 4:58 PM EST): Pain is most likely gastritis related to take meloxicam. I like him to start omeprazole 20 mg twice daily. If is not seeing any improvement in a week, I will check a CT of his abdomen. Presuming his labs are normal, if the CT is unremarkable, I will refer him to GI for possible upper endoscopy. He had a colonoscopy done 2 years ago which was normal. Drug induced constipation 08/03/2020 Assessment & Plan (08/03/2020 11:05 AM EDT): Pain is likely due to constipation which may be caused by meloxicam. I recommend he have some prunes or dried apricots every day. If this does not help he can use docusate 100 mg once or twice a day. If neither of these help he will let me know. Left leg pain 06/22/2019 12/25/2019 Assessment & Plan (06/22/2019 9:34 PM EDT): Although he likely has some degree of degenerative arthritis of his hip, pain radiating to his thigh down to his foot is more likely related to a lumbar radiculopathy. He is not interested in any intervention other than continuing to work on losing weight. I think this is a good plan, but if his pain increases I encouraged him to discuss this with me before considering any treatment just focusing on his hip as I think we need to rule out radiculopathy first. Encounters Date Type Department Care Team Description 05/13/2025 2:30 PM EDT Office Visit [address] [place] [id number] Rubio Grubbs MD Essential hypertension (Primary Dx); Idiopathic chronic gout of foot without tophus, unspecified laterality; Seronegative rheumatoid arthritis; Beta thalassemia minor; Obstructive sleep apnea on CPAP; Chronic diarrhea; Recurrent major depressive disorder, in full remission 05/11/2025 Orders [place] [address] [place] [id number] ProviderMandeep MD 05/04/2025 Orders Only [address] [place] [id number] Provider, MD Mandeep 04/20/[address] [place] [id number] Lana Cleveland, DIANA Medication Refill from Last 3 Months Immunizations Immunization Administration Dates Next Due COVID-19 (Pre-09/09) Pfizer Vaccine, mRNA, PF 01/30/2021,01/08/2021 Influenza High-Dose Quadriva lent Preservative Free IM 09/05/2022,09/06/2020 Influenza High-Dose Trivalen t Preservative Free IM 08/26/2024,09/13/2017 Influenza Quadrivalent Adjuv anted Preservative Free IM 09/11/2023,09/04/2021 Influenza Quadrivalent w/ Preservative IM 2017,10/07/2013,08/19/2012 Influenza Trivalent Adjuvant ed Preservative free IM 08/17/2019,08/13/2018 Pneumococcal conjugate PCV13 10/28/2017 Pneumococcal conjugate PCV20 10/16/2024 Pneumococcal polysaccharide PPSV23 10/30/2018 RSV Vaccine (monovalent, adjuvanted) 11/21/2023 Tdap 03/13/2007 Zoster recombinant 06/29/2021,03/13/2021 Family History Medical History Relation Comments Diabetes Brother 1 Heart failure Brother 2 COPD Brother 3 Pancreatic cancer Father Multiple sclerosis Son 2 Relation Status Comments Brother 1 Brother 2 Brother 3 (Age 79) Father (Age 53) Mother (Age 93) Son 1 Alive Son 2 Alive Social History Tobacco Use Types Packs/Day Years [...] with a working camera? Not on file Intimate Partner Violence Answer Date R ecorded Denied Basic Needs Not on file 11/19/2024 In the past 12 months have y ou been in a relationship with a person who hurts, threatens, or tries to control you? No 11/19/2024 Worried food would run out Not on file 11/19 In the past 12 months have y ou been in a relationship with a person who hurts, threatens, or tries to control you? No 11/19/2024 Sex and Gender Information Value Date Recorded Sex Assigned at Not on file Legal Sex Male 6:27 PM EST Gender Identity Not on file Sexual Orientation Not on file Last Filed Vital Signs Vital Sign Reading Time Taken Comments Blood Pressure 132/83 05/13/2025 2:15 PM EDT Pulse 60 05/13/2025 2:15 PM EDT Temperature 36.3 C (97.3 F) 05/13/2025 2:15 PM EDT Respiratory Rate 18 07/19/2023 9:58 AM EDT Oxygen Saturation 97% 05/13/2025 2:15 PM EDT Inhaled Oxygen Concentration - - Weight 126.1 kg (278 lb) 05/13/2025 2:15 PM EDT Height 179.8 cm (5' 10.79 ) 05/13/2025 2:15 PM E DT Body Mass Index 39.01 05/13/2025 2:15 PM EDT Plan of Treatment Upcoming Encounters Date Type Department Care Team (Late st Contact Info) Description 11/23/2025 1:00 PM EST Office Visit [facility] [address] [place] [address] Rubio Grubbs MD [address] [place] [address], [address] [place] [address] [email or web address] Due Date Last Done Comments COLOGUARD 1996 FIT TEST 1996 FOBT 1996 SIGMOIDOSCOPY 1996 VIRTUAL COLONOSCOPY 1996 Adult Td,Tdap Booster 03/13/2017 03/13/2007 LIPID PANEL 12/25/2024 12/25/2019, 12/25/2019 COVID-19 VACCINE (8 - Pfizer risk 2023- season) 2025 08/26/2024, 09/11/2023, 09/05/2022, Additional history exists BLOOD PRESSURE 11/12/2025 05/13/2025 DEPRESSION SCREENING 11/19/2025 11/19/2024 CREATININE LEVEL 11/20/2025 11/20/2024, , 04/27/2024, Additional history exists POTASSIUM LEVEL 11/20/2025 11/20/2024, 08/18, 04/03/2023, Additional history exists COLONOSCOPY 01/22/2028 01/21/2018 COLORECTAL CANCER SCREENING 01/22/2028 ZOSTER VACCINES Completed 06/29/2021, 03/13/2021 HEPATITIS C SCREENING Completed 07/31/2021, 020 RSV VACCINE Completed 11/21/2023 PNEUMOCOCCAL VACCINES (50+ years) Completed 10/16/2024, 10/30/2018, 10/28/2017 SMOKING STATUS SCREENING (Once After 26 Yrs) Completed 05/13/2025 HEPATITIS A VACCINES Aged Out No long er eligible based on patient's age to complete this topic HIB VACCINES Aged Out No longer eligi ble based on patient's age to complete this topic MENINGOCOCCAL VACCINES (ACWY) Aged Out No longer eligible based on patient's age to complete this topic MENINGOCOCCAL VACCINES (B) Aged Out N o longer eligible based on patient's age to complete this topic Medical Devices Not on file Procedures Procedure Name Priority Date/Time Associated Diagnosis Comments BASIC METABOLIC PANEL Routine 11/20/2024 3:32 PM EST Essential hypertension LIPID PANEL Routine 12/25/2019 2:01 PM EST Essential hypertension HEPATITIS C ANTIBODY, QUALITATIVE Routine 12/25/2019 2:01 PM EST Encounter for Medicare annual wellness exam HM COLONOSCOPY FOR RESULT ENTRY ONLY Routine 01/21/2018 from Last 3 Months or Most Recently Relevant to Health Maintenance Results * Basic metabolic panel (11/20/2024 3:32 PM EST) Blood Rubio Grubbs MD LAB BLOOD ORDERABLES Final Result Performing Organization Address [facility]/ZIP Co de Phone Number [address] [address] * Hepatitis C antibody, qualitative (12/25/2019 2:01 PM EST) HCV NON-REACTIV E NON-REACTI VE [facility] Blood 12/25/2019 2:01 PM EST 12/25/2019 2:02 PM EST Rubio Grubbs MD LAB BLOOD ORDERABLES Final Result Performing Organization Address [facility]/ZIP Co de Phone Number [address] [address] * (ABNORMAL) Lipid panel (12/25/2019 2:01 PM EST) HDL 58 mg/dL [facility] Comment: Interpretation <40 mg/dL: Low HDL cholesterol (major risk factor for CHD) Greater than or equal to 60 mg/dL: High HDL cholesterol ( negative risk factor for CHD) HDL - cholesterol is affected by a number of factors, e.g. smoking, excerise, hormones, sex and age. CHOLESTEROL 173 0 - 240 mg/dL [facility] TRIGLYCERIDES 55 30 - 160 mg/dL [facility] LDL 104 50 - 129 mg/dL [facility] Comment: LDL levels in terms of risk for coronary heart disease: <100 mg/dL: Optimal 100-129 mg/dL: Near or above optimal 130-159 mg/dL: Borderline high 160-189 mg/dL: High >190 mg/dL: Very High CARDIAC RISK RATIO 3.0(L) 3.4 - 5.0 [facility] Blood 12/25/2019 2:01 PM EST 12/25/2019 2:02 PM EST Rubio Grubbs MD LAB BLOOD ORDERABLES Final Result Performing Organization Address City/State/[facility] Co de Phone Number [facility] [address] [place] [address] * COLONOSCOPY FOR RESULT ENTRY ONLY (01/21/2018) Colonoscopy ... us Historical Provider HEALTH MAINTENANCE Final Result from Last 3 Months or Most Recently Relevant to Health Maintenance Insurance [place] [id number] [facility] MEDICARE SUPPLEMENT MEDICARE PART A & B Member Subscriber Plan / Payer ( fective 2016-Present) Name:Dez Weaver Member ID:[id number] Relation to Subscriber:Self Name:Dez Weaver Subscriber ID:[id number] Payer ID:[id number] Group ID:Not on file Type:Medicare Address: [facility] [employer] [facility] [address] [place] [phone] [facility] MEDICARE SUPPLEMENT MEDICARE PART A & B [facility] MEDICARE SUPPLEMENT MEDICARE PART A & B [facility] MEDICARE SUPPLEMENT MEDICARE PART A & B [employer] MEDICARE SUPPLEMENT MEDICARE PART A & B [employer] MEDICARE SUPPLEMENT MEDICARE PART A & B [facility] MEDICARE SUPPLEMENT MEDICARE PART A & B [facility] MEDICARE SUPPLEMENT MEDICARE PART A & B [facility] MEDICARE SUPPLEMENT Care Teams [employer] Relationship Specialty Start Date End Date Rubio Grubbs MD [address] [place] [address], [address] [place] [address] [email or web address] PCP - General Family Medicine 11/20/18 Carlos Christian MD [address] [facility] [address] [place] [id number] Unknown Provider Specialty 01/31/21 Wilbert Masters MD [address] [id number] Internal Medicine 08/02/21 Carlos Caputo MD [address] [place] [address] [address] [place], [place] [id number] Orthopedic Surgery 04/06/22 Additional Source Comments The information contained in this document represents components of the legal health record. It is not the complete legal health record.[facility]
--- OUTSIDE RECORDS SUMMARY | 2025-07-20 15:20 | XMS_ITS | Encounter Summary ---
Author Organization [facility] Address [address] [facility] [address] [place] [phone] Phone Care Team Providers Care Development Planner Name Role Phone Rubio Grubbs MD Primary Care Provider [phone] Carlos Christian MD Unavailable Rubio Grubbs MD Unavailable [phone] Wilbert Masters MD Unavailable Carlos Caputo MD Unavailable [phone] Encounter Details Date Type Department Care Team (Late st Contact Info) Description 05/16/2023 Procedure Pass Non-Invasive Cardiology [address] [place] [address] Social History Tobacco Use Types Packs/Day Years [...] on file documented as of this encounter Plan of Treatment Upcoming Encounters Date Type Department Care Team (Late st Contact Info) Description 11/23/2025 1:00 PM EST Office Visit [facility] [address] [place] [address] Rubio Grubbs MD [address] [place] [address], [address] [place] [address] documented as of this encounter Visit Diagnoses Not on filedocumented in this encounter Additional Health Concerns Infection Onset Date Last Indicated Resolved Time CDiff-Risk 09/01/2024 09/02/2024 09/02/2024 7:18 PM EDT Assessment Noted Time PHQ-2 Depression Total Score: 0 04/06/20 1:06 PM EDT documented as of this encounter Care Teams Development Planner Relationship Specialty Start Date End Date Rubio Grubbs MD [address] [place] [address], [address] [place] [address] PCP - General Family Medicine 11/20/18 Carlos Christian MD [address] [place] [phone] Unknown Provider Specialty 01/31/21 Rubio Grubbs MD [address] [place] [address], [address] [place] [address] Insurance Assigned Provider 02/22/24 11/23/24 Wilbert Masters MD [address] [place] [address], [address] [place] [address] Internal Medicine 08/02/21 Carlos Caputo MD [address] [place], [place] [address] [address] Orthopedic Surgery 04/06/22 documented as of this encounter Additional Source Comments The information contained in this document represents components of the legal health record. It is not the complete legal health record.[facility]
--- OUTSIDE RECORDS SUMMARY | 2025-07-20 15:20 | XMS_ITS | Encounter Summary ---
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 Role Phone Rubio Grubbs MD Primary Care Provider [phone] Carlos Christian MD Unavailable Rubio Grubbs MD Unavailable Wilbert Masters MD Unavailable Carlos Caputo MD Unavailable Reason for Visit * Reason Comments Medication Refill Encounter Details Date Type Department Care Team (Late st Contact Info) Description 07/11/2024 Refill [facility] Medicine [address] [place] [address] [place] [address] Lana Cleveland, [employer]IE[employer] [address] [facility], [address] [place] [address] [email or web address] Medication Refill Social History Tobacco Use Types Packs/Day Years [...] ecorded Denied Basic Needs Not on file 11/03/2023 In the past 12 months have y ou been in a relationship with a person who hurts, threatens, or tries to control you? No 11/03/2023 Worried food would run out Not on file 11/03 In the past 12 months have y ou been in a relationship with a person who hurts, threatens, or tries to control you? No 11/03/2023 Sex and Gender Information Value Date Recorded Sex Assigned at Not on file Legal Sex Male 6:27 PM EST Gender Identity Not on file Sexual Orientation Not on file documented as of this encounter Progress Notes * Noel Valencia - 07/13/2024 11:54 AM EDT Rx Care Gap Status - Instructions for Clinical Staff (prescriber discretion applies): > At least one medication below does not meet full criteria. Please see medication-specific renewal instructions below. > Labs due: Remind patient to get lab tests done soon. > Orders needed: Please click BPA/SmartSet to enter. Labs due for current Rx Request(s): BMP - Needs order * Labs due for other medications on list: Uric Acid - Needs order * CBC - Needs order * LFTs - Needs order * Visit Info Last visit: 05/07/2024 Rubio Grubbs MD - Family Medicine [facility] > Requested f/u: Return in about 6 months (around 2024) for Annual physical. Upcoming visit: 07/22/2024 (Rubio Grubbs MD - [facility]) ACTIONS TAKEN BY Noel Valencia - Refill protocol not met - Entered lab orders and reminded patient to do lab tests soon. - Labs reminder ACEi / ARBs / Diuretic Rx Protocol (on HTN Registry) - losartan potassium Criteria not met; renew for up to 3 months. Rx duration can be longer at prescriber discretion if labs are stable and dose is appropriate for renal function. Visit in the past 14 months: Yes Clinical criteria: - BP within last 6 months: 128/72 on 05/07/2024 - BMP within past year: No - Cr, GFR and K are normal: No Lab Results Component Value Date SODIUM 144 04/03/2023 POTASSIUM 5.2 (H) 04/03/2023 CHLORIDE 110 (H) 04/03/2023 CO2 24 04/03/2023 BUN 16 04/03/2023 CREATININE 0.90 04/03/2023 EGFR 91 04/03/2023 Health Maintenance Labs Due / Due Soon Topic Date Due POTASSIUM LEVEL 04/03/2024 documented in this encounter Plan of Treatment Upcoming Encounters Date Type Department Care Team (Late st Contact Info) Description 11/23/2025 1:00 PM EST Office Visit [facility] Medicine [address] [place] [address] [place] [address] Rubio Grubbs MD [address] [place] [address], [address] [place] [address] [email or web address] documented as of this encounter Visit Diagnoses Diagnosis Idiopathic chronic gout of foot without tophus, unspecified laterality- Primary Essential hypertension Unspecified essential hypertension documented in this encounter Additional Health Concerns Infection Onset Date Last Indicated Resolved Time CDiff-Risk 09/01/2024 09/02/2024 09/02/2024 7:18 PM EDT Assessment Noted Time PHQ-2 Depression Total Score: 0 11/03/20 23 2:59 PM EST documented as of this encounter Care Teams Grain Farmworker Relationship Specialty Start Date End Date Rubio Grubbs MD [address] [place] [address], [address] [place] [address] PCP - General Family Medicine 11/20/18 Carlos Christian MD [address] [place] [phone] Unknown Provider Specialty 01/31/21 Rubio Grubbs MD [address] [facility], [address] [place] [address] [email or web address] Insurance Assigned Provider 02/22/24 11/23/24 Wilbert Masters MD [address] [place] [address], [address] [place] [address] Internal Medicine 08/02/21 Carlos Caputo MD [facility] [address] [address] Orthopedic Surgery 04/06/22 documented as of this encounter Additional Source Comments The information contained in this document represents components of the legal health record. It is not the complete legal health record.[facility]
== END 2025-07-20 14:45 | disposition home or self-care (01) ==
LOC: HO.RHES 14:07
PROVIDERS: PCP Internal Medicine; Visit Provider Internal Medicine Rheumatology
DX: M06.09 Rheumatoid arthritis without rheumatoid factor, multiple sites (principal); M65.321 Trigger finger, right index finger; Z79.899 Other long term (current) drug therapy; D50.9 Iron deficiency anemia, unspecified
CPT/HCPCS: 99214; G2211

== ENCOUNTER 2025-07-20 14:07 | Outpatient (REF) | payer MEDICARE, OTHER, SELFPAY ==
[2025-07-20 17:43] LABS: MANUAL DIFF FLAG NO
[2025-07-20 17:49] LABS: Hematocrit 35.7 % (42.0-52.0); Hemoglobin 10.7 g/dl (14.0-18.0); Imm Gran Abs Auto 0.01 X10*3/uL (0.00-0.03); Imm Gran Pct Auto 0.2 % (0.0-0.4); Lymphocytes Absolute Auto 0.5 X10*3/uL (1.2-4.9); Mean Corpuscular HGB Conc 30.0 g/dl (31.0-36.0); Mean Corpuscular Hemoglobin 19.2 pg (27.0-33.0); Mean Corpuscular Volume 64.1 fL (80.0-98.0); NRBC Abs Auto 0.000 X10*3/uL (0.0-0.012); NRBC Pct Auto 0.0 /100WBC (0.0-0.2); Platelet Count 191 X10*3/uL (160-400); Red Blood Count 5.57 X10*6/uL (4.60-5.80); White Blood Count 4.6 X10*3/uL (4.8-10.8)
[2025-07-20 18:19] LABS: Alanine Aminotransferase 21 U/L (0-40); Aspartate Amino Transferase 32 U/L (5-37); Estimated Glomerular Filt Rate > 60
== END 2025-07-20 14:08 | disposition home or self-care (01) ==
LOC: HO.HKASLDS 14:07
PROVIDERS: PCP Internal Medicine; Visit Provider Internal Medicine Rheumatology
DX: Z51.81 Encounter for therapeutic drug level monitoring (principal); M06.09 Rheumatoid arthritis without rheumatoid factor, multiple sites; M65.321 Trigger finger, right index finger; D50.9 Iron deficiency anemia, unspecified; Z79.899 Other long term (current) drug therapy; D56.3 Thalassemia minor; Z79.631 Long term (current) use of antimetabolite agent
CPT/HCPCS: 36415; 82565; 84450; 84460; 85025; 85652; 86140; 99212